=== PATIENT | female | born 1970 | race Caucasian/White ===

== ENCOUNTER 2017-10-26 17:00 | Emergency (ER) | payer OTHER ==
[2017-10-26] MEDS ORDERED: KETOROLAC TROMETHAMINE 60 MG/2 ML VIAL ONE (17:59)
[2017-10-26] MEDS ORDERED: DIAZEPAM 5 MG TABLET ONE (18:04)
== END 2017-10-26 21:03 | disposition home or self-care (01) ==
LOC: EDH 17:00
DX: S32.028A Other fracture of second lumbar vertebra, initial encounter for closed fracture (principal); W18.39XA Other fall on same level, initial encounter; Y93.89 Activity, other specified; Y92.89 Other specified places as the place of occurrence of the external cause; Y99.8 Other external cause status
CPT/HCPCS: 72100; 72131; 96372; 99285; J1885